=== PATIENT | male | born 1960 | race Caucasian/White ===

== ENCOUNTER → 2016-07-31 | Outpatient (CLI) | payer OTHER ==
[~2016-07-31] MED LIST: ASA325 MG PO; CELEBREX200 MG PO; DIOVAN160 MG PO; FLEXERIL-DPS10 MG PO; MIRALAX PACKET17 GM PO; OXY IR DPS5 MG PO; PRAVACHOL20 MG PO; PROTONIX40 MG PO; SENOKOT S1 TAB PO; TYLENOL DPS325 MG PO; ULTRAM DPS50 MG PO
== END | disposition home or self-care (01) ==
LOC: PTH.S 09:52
DX: Z01.818 Encounter for other preprocedural examination (principal); I10 Essential (primary) hypertension

== ENCOUNTER 2016-08-05 09:58 | Inpatient (IN) | payer OTHER ==
[~2016-08-05] VITALS: Ht 182.9 cm; Wt 160.4 kg
--- NOTE | 2016-08-05 13:43 | HP ---
ADMIT: 08/05/2016 RM/LOC: W.07 [facility] MR#: [id number] [address] [address] [place] [address] Pre-OP History and Physical SEX: M AGE: 55 : 1960 DATE OF SERVICE: CHIEF COMPLAINT: Left knee pain. HISTORY OF PRESENT ILLNESS: The patient is a 55-year-old white male with left knee DJD. He has had a scope with grade 4 changes and chondromalacia throughout his knee. His dull achy pain is bothering him significantly. He is not having more sharp catching pain but has hard time walking, hard time sleeping at night due to pain in the knee. PAST MEDICAL HISTORY: Significant for history of wrist problems, sleep apnea, hepatitis, hypertension, knee arthroscopy, carpal tunnel release, and hernia repair. MEDICATIONS: 1. Aspirin. 2. Aleve. 3. Tylenol. 4. Pravastatin. ALLERGIES: NO ALLERGIES. SOCIAL HISTORY: The patient is a former smoker. Rarely drinks alcohol. PHYSICAL EXAMINATION: HEENT: Normocephalic and atraumatic. CV: Regular rate and rhythm. LUNGS: Benign. ABDOMEN: Benign. NEUROLOGIC: Awake and oriented x3. MUSCULOSKELETAL: Shows the patient has a full extension to knee, 130 degrees of flexion. Tender over the medial joint line and the patellofemoral joint. There is patellofemoral crepitus. No ligamentous laxity. ADMIT: 08/05/2016 RM/LOC: W.07 [facility] MR#: [id number] [address] [address] MANISH MOTT [address] [place] [id number] Pre-OP History and Physical SEX: M AGE: 55 : 1960 X-rays show left knee DJD with narrowing along the medial and lateral compartments of the knee and a little bit over the patellofemoral joint. ASSESSMENT AND PLAN: Left knee degenerative joint disease. At this point in time, we will plan left total knee arthroplasty. The patient understands the risks and benefits of surgical intervention which include, but not limited to infection, DVT, arthrofibrosis, neurovascular injury, injury, loosening, , etc., and desires to proceed. He will see Dr. Ray for preoperative medical clearance who will follow him postoperatively in the hospital for anticoagulation and any medical issues that may arise. Please refer to that H and P for any in-depth medical issues or medication changes. Collin Menjivar MD/ [place] JOB #: [id number] CC: Collin Menjivar, Attending Physician Arturo Ray, Family Physician
[2016-08-08] MEDS ORDERED: DIOVAN160 MG PO (17:06)
[2016-08-08] MEDS ORDERED: ASA325 MG PO (17:07)
[2016-08-08] MEDS ORDERED: PRAVACHOL20 MG PO (17:07)
[2016-08-08] MEDS ORDERED: ULTRAM DPS50 MG PO (17:07)
[2016-08-08] MEDS ORDERED: PROTONIX40 MG PO (17:08)
[2016-08-08] MEDS ORDERED: CELEBREX200 MG PO (17:10)
[2016-08-08] MEDS ORDERED: MIRALAX PACKET17 GM PO (17:10)
[2016-08-08] MEDS ORDERED: SENOKOT S1 TAB PO (17:11)
[2016-08-08] MEDS ORDERED: FLEXERIL-DPS10 MG PO (17:11)
[2016-08-08] MEDS ORDERED: OXY IR DPS5 MG PO (17:11)
[2016-08-08] MEDS ORDERED: TYLENOL DPS325 MG PO (17:12)
--- NOTE | 2016-08-12 14:37 | OR ---
ADMIT: 08/05/2016 RM/LOC: 529 [facility] MR#: [id number] [facility]#: [id number] [address] [address] MANISH MOTT [address] [place] [address] Operative/Delivery Room Report SEX: M AGE: 55 : 1960 SURGERY DATE: 08/05/2016 SURGEON: Collin Menjivar MD PREOPERATIVE DIAGNOSIS: Left knee degenerative joint disease. POSTOPERATIVE DIAGNOSIS: Left knee degenerative joint disease. PROCEDURES PERFORMED: Left total knee arthroplasty with Lloyd and Lloyd system, size 6 posterior stabilized femoral component, size 5 tibial tray with a 30 mm stem extension. A size 10 tibial insert, size 41 patellar button. FILAMENT WELDER: HAROON Hickman and Patel Benavides PA-C. ANESTHESIA: General. ESTIMATED BLOOD LOSS: Minimal. FLUIDS: Per anesthetic record. COMPLICATIONS: None. DRAIN: One drain. TOURNIQUET TIME: 74 minutes. CONDITION ON DISCHARGE: The patient returned to the recovery room in fair condition. INDICATION: The patient is status post left knee scope. He was noted to have grade 4 changes along his medial femoral condyle. He is refractory to nonoperative treatment. He desires surgical intervention. He understood the risks and benefits of procedure, desired to proceed with operation. PROCEDURE IN DETAIL: The patient was taken to the OR, transferred to the OR table, underwent general anesthesia. All bony prominences were well padded. Left lower extremity had a well-padded tourniquet placed. The left lower extremity was prepped and draped in the usual sterile fashion, was exsanguinated, and tourniquet inflated to 350 mmHg. An anterior incision was made starting medial to the tibial tubercle through the skin and subcutaneous tissue, and taken to above the patella. Medial arthrotomy then performed with a #10 blade. The patella everted, knee flexed. The ACL, PCL, medial and lateral menisci excised. Step drill was then used to open the intramedullary canal of femur. I placed the IM alignment guide with the distal cutting block down the intramedullary canal of femur set at 13 mm of resection, 5 degrees of valgus cut, and pinned it to the anterior aspect of the distal femur. I removed the IM alignment guide. I cut the distal femur using an oscillating saw. I removed this cutting block and sized the femur to 6. I placed a size 6, 4-in-1 cutting block on the distal aspect of the femur in 3 degrees of ADMIT: 08/05/2016 RM/LOC: 529 [facility] MR#: [id number] [address] [address] MANISH MOTT [address] [place] [address] Operative/Delivery Room Report SEX: M AGE: 55 : 1960 external rotation, made the 4 appropriate cuts using an oscillating saw. I then used a box cutting jig and cut the box of the distal femur using a reciprocating saw. The proximal tibia was then cut perpendicular to the long axis of the tibia. We used the proximal tibial cutting guide and oscillating saw. The posterior aspect of the patella was cut and flushed with the posterior aspects of the quadriceps and patellar tendons using the patella cutting saw. This was sized at a 41, step drilled with the guide. Trial components were then placed. A size 5 tibial tray with 10 mm insert gave excellent range of motion, stability, and patellar tracking. Thus, the femoral component was step drilled, tibial component step drilled, and cruciate punched. Trial components were then removed. Knee thoroughly irrigated with bacitracin solution and dried. Knee thoroughly injected with Exparel compound throughout. I then cemented the tibia, size 5 tibia with a 30 mm stem into position along with the patella and the femoral components removing all extraneous cement as it dried. I then impacted a 10 mm insert in the tibial tray and ran the knee through a range of motion. It had excellent range of motion, stability, and patellar tracking. Thus, 1 deep drain was then placed. Medial arthrotomy closed using #1 Vicryl, subcutaneous tissue closed using 2-0 Vicryl, skin closed using celso. Wounds were washed, dried, dressed with sterile Adaptic, 4x4s, ABD, Webril, Vazquez wrap, ice pad placed on top of the Vazquez wrap. Drapes removed, tourniquet let down, and the patient was transferred back to recovery room in fair condition after reversal of general anesthesia. Collin Menjivar MD/ [place] JOB #: [id number] CC: Collin Menjivar, Attending Physician Arturo Ray, Family Physician
--- NOTE | 2016-08-19 15:05 | DS ---
ADMIT: 08/05/2016 RM/LOC: [address] [place] [address] MR#: [id number] [address] [place] [address] MANISH MOTT [address] [place] [address] General Discharge Summary SEX: M AGE: 55 : 1960 ADMISSION DATE: 08/05/2016 DISCHARGE DATE: 08/07/2016 REASON FOR ADMISSION: Elective left total knee arthroplasty after failing conservative management for osteoarthritis. PREOPERATIVE DIAGNOSIS: Left knee degenerative joint disease. POSTOPERATIVE DIAGNOSIS: Left knee degenerative joint disease. PROCEDURE PERFORMED: Left total knee arthroplasty. ANESTHETIC: General. COMPLICATIONS: None. BLOOD LOSS: Minimal. SURGEON: Collin Menjivar MD ASSISTANTS: HAROON Hickman and Patel Benavides PA-C ACTIVE MEDICAL PROBLEMS: Osteoarthritis, hypertension, hyperlipidemia, morbid obesity, and peripheral neuropathy. HOSPITAL COURSE: The patient was admitted on 08/05/2016 for elective left total knee arthroplasty, it was completed successfully by Dr. Menjivar. There were no complications. Postoperatively, he did well with physical therapy, participated and progressing with his exercises. His pain was well controlled with the use of oral analgesics as well as intraoperative pain cocktail. The remainder of his hospital course was unremarkable. DISCHARGE MEDICATIONS: 1. Aspirin 325 mg daily. 2. Celebrex 200 mg b.i.d. 3. Diovan 320 mg daily. ADMIT: 08/05/2016 RM/LOC: 9 [facility] MR#: [id number] [address] [place] [id number] [address]ISH MOTT [address] [place] [address] General Discharge Summary SEX: M AGE: 55 : 1960 4. MiraLAX p.r.n. 5. Pravachol 20 mg daily. 6. Protonix 40 mg daily while on aspirin. 7. Senokot b.i.d. p.r.n. 8. Tylenol 650 mg q.4 p.r.n. 9. Ultram 50 mg 1 to 2 q.6 p.r.n. 10.Flexeril 10 mg t.i.d. p.r.n. 11.OxyIR 5 mg 1 to 2 q.4 p.r.n. DISCHARGE INSTRUCTIONS: Manish will undergo outpatient therapy per total knee arthroplasty protocol. Follow up in Orthopedic office in 2 weeks for wound check, 6 weeks with x-rays. Follow up with primary care as directed. Patel Benavides PA-C / Collin Menjivar MD / [place] JOB #: [id number] CC: Collin Menjiavr MD, Attending Physician Arturo Ray MD, Family Physician
--- NOTE | 2016-09-13 16:49 | CO ---
ADMIT: 08/05/2016 RM/LOC: [facility] MR#: [id number] [address] [address] MAN[address] MOTT [address] [place], [place] [address] Consultation Report SEX: M AGE: 55 : 1960 DATE OF CONSULTATION: 08/01/2016 ATTENDING PHYSICIAN: Collin Menjivar CONSULTING PHYSICIAN: Arturo Ray MD REASON FOR CONSULTATION: Preoperative clearance. HISTORY OF PRESENT ILLNESS: This is a 55-year-old white male, who presented to the office today at the request of Dr. Collin Menjivar for preoperative clearance. He is scheduled to undergo left total knee arthroplasty on August 05, and denies any specific concerns other than obviously left leg pain, left knee pain. He has exhausted conservative measures and is at his last-ditch effort for pain control, it is limiting his ability to ambulate without limp, it is affecting his lifestyle, he is not able to exercise, unfortunately his weight continues to go up and therefore, he is needing a total knee. He denies any recent colds, coughs, or congestions. No fevers or chills. No recent chest pain. PAST MEDICAL HISTORY: Remarkable for: 1. Morbid obesity. 2. Hypertension. 3. Hyperlipidemia. 4. Erectile dysfunction. 5. Peripheral neuropathy. PAST SURGICAL HISTORY: 1. Hiatal hernia repair and Steven fundoplication. 2. Previous sinus surgery. 3. Right wrist surgery. 4. Bilateral knee arthroscopy. CURRENT MEDICATIONS: 1. Aleve 220 mg p.r.n. 2. Tramadol 50 mg b.i.d. p.r.n. 3. Pravastatin 20 mg at bedtime. 4. Valsartan 325 mg daily. 5. Aspirin 81 mg daily. ALLERGIES: NONE. FAMILY HISTORY: Father with diabetes, hypertension, and peripheral vascular disease. Mother with mini strokes. SOCIAL HISTORY: He does not smoke. Occasional alcohol use. Works for [employer] in the [employer] department. REVIEW OF SYSTEMS: GENERAL: No fevers or chills. HEENT: No headaches, blurry vision, or double vision. ADMIT: 08/05/2016 RM/LOC: [facility] MR#: [id number] [address] [address] [address] M[address] [place], [place] [id number] Consultation Report SEX: M AGE: 55 : 1960 CARDIAC: No chest pains. PULMONARY: No shortness of breath. GASTROINTESTINAL: No nausea, vomiting, or diarrhea. GENITOURINARY: No dysuria, urgency, or frequency. ENDOCRINE: No polyuria or polydipsia. PSYCH: No depression. INTEGUMENTARY: No new rashes. MUSCULOSKELETAL: Does complain of left knee pain and left lower extremity pain. PHYSICAL EXAMINATION: VITAL SIGNS: Blood pressure 148/84, pulse 60, respirations 18, temp is 98.5. GENERAL: He is in no acute distress. He is alert and oriented. HEENT: Pupils are reactive. Conjunctivae are clear. TMs are clear. Clear nasal mucosa. Clear oropharynx. Moist mucous membranes. NECK: Soft and supple without lymphadenopathy. No thyromegaly. LUNGS: Clear to auscultation with normal respiratory effort. HEART: Regular rate and rhythm without murmur. ABDOMEN: Soft, obese, nontender. EXTREMITIES: No cyanosis. No clubbing. There is just a trace edema bilaterally. SKIN: No rashes. NEUROLOGIC: Cranial nerves II through XII grossly intact. No focal deficits. LABORATORY AND X-RAY DATA: EKG shows normal sinus rhythm with nothing acute. White count is 6900, hemoglobin 14.6, platelets 205,000. Sodium 142, potassium 4.7, chloride 107, CO2 of 28, BUN 13, creatinine 1.0, glucose 95, calcium 8.7. ASSESSMENT: 1. Left knee degenerative joint disease. 2. Hypertension. 3. Hyperlipidemia. 4. Morbid obesity. 5. Peripheral neuropathy. PLAN: He has no signs or symptoms of acute illness. His preop lab and EKG look fine, and I recommend proceeding with the procedure as scheduled. We will anticoagulate with a full-strength 325 mg aspirin for a total of six weeks post surgery, and we will follow in the perioperative period. Arturo Ray MD/ [place] JOB #: [id number] CC: Collin Menjivar, Attending Physician Arturo Ray, Family Physician
== END 2016-08-07 12:53 | disposition home or self-care (01) | DRG 470 ==
LOC: WOR 11:35 → 5MS 11:35
PROVIDERS: ADMIT Orthopaedic Surgery
PROC: 0SRD0J9 Replacement of Left Knee Joint with Synthetic Substitute, Cemented, Open Approach (ICD-10-PCS; principal; 2016-08-05)
DX: M17.12 Unilateral primary osteoarthritis, left knee (principal); Z68.42 Body mass index [BMI] 45.0-49.9, adult; I10 Essential (primary) hypertension; E66.01 Morbid (severe) obesity due to excess calories; G47.30 Sleep apnea, unspecified; E78.5 Hyperlipidemia, unspecified; N52.9 Male erectile dysfunction, unspecified; G62.9 Polyneuropathy, unspecified; Z87.891 Personal history of nicotine dependence; Z86.19 Personal history of other infectious and parasitic diseases; Z79.82 Long term (current) use of aspirin